=== PATIENT | female | born 1980 | race Hispanic/Latino ===

== ENCOUNTER 2017-01-27 05:28 | Observation (INO) | payer BC ==
[2017-01-27 05:41] VITALS: BMI 34.0
[2017-01-27 05:45] VITALS: TEMP 99.2
--- NOTE | 2017-01-27 06:21 | ED PDOC ---
Arrival/HPI <Bret Robin - Last Filed: 01/27/17 08:15> - General Historian: Patient - History of Present Illness Time/Duration: Other (yesterday evening) Symptom Onset: Gradual Symptom Course: Unchanged Quality: Cramping Activities at Onset: Rest, Light Context: Home <Tone Jovel - Last Filed: 01/29/17 22:10> - General Chief Complaint: Abdominal Pain Time Seen by Provider: 01/27/17 06:13 - History of Present Illness Narrative History of Present Illness (Text): 01/27/17 06:20 Ge Grayson is a 36 year old female who presents to the Emergency department complaining of abdominal cramping since yesterday evening. Patient reports nausea, vomiting, and diarrhea. Patient notes her children at home are sick with similar symptoms. Patient denies any fever, chills, chest pain, shortness of breath, urinary symptoms, back pain, neck pain, headache, dizziness, or any other complaints. (Tone Jovel) Past Medical History - Provider Review Nursing Documentation Reviewed: Yes - Psychiatric Hx Substance Use: No <MagalymaxiTone - Last Filed: 01/29/17 22:10> Family/Social History - Physician Review Nursing Documentation Reviewed: Yes Family/Social History: No Known Family HX Smoking Status: no Hx Alcohol Use: No Hx Substance Use: No <BeckaTone - Last Filed: 01/29/17 22:10> Allergies/Home Meds <DontrellBret garay - Last Filed: 01/27/17 08:15> <BeckaTone - Last Filed: 01/29/17 22:10> Allergies/Adverse Reactions: Allergies Penicillins Allergy (Verified 01/27/17 05:41) RASH Review of Systems - Physician Review All systems were reviewed & negative as marked: Yes - Review of Systems Constitutional: Normal. absent: Fevers Eyes: Normal ENT: Normal Respiratory: Normal. absent: SOB, Cough Cardiovascular: Normal. absent: Chest Pain Gastrointestinal: Abdominal Pain, Diarrhea, Nausea, Vomiting Genitourinary Female: Normal. absent: Dysuria, Frequency, Hematuria, Urine Output Changes Musculoskeletal: Normal. absent: Back Pain, Neck Pain Skin: Normal. absent: Rash Neurological: Normal. absent: Headache, Dizziness Endocrine: Normal Hemo/Lymphatic: Normal Psychiatric: Normal <BeckaTone - Last Filed: 01/29/17 22:10> Physical Exam Vital Signs Reviewed: Yes Temperature: Afebrile Blood Pressure: Normal Pulse: Regular Respiratory Rate: Normal Appearance: Positive for: Well-Appearing, Non-Toxic, Comfortable Pain Distress: None Mental Status: Positive for: Alert and Oriented X 3 - Systems Exam Head: Present: Atraumatic, Normocephalic Pupils: Present: PERRL Extroacular Muscles: Present: EOMI Conjunctiva: Present: Normal Mouth: Present: Moist Mucous Membranes Neck: Present: Normal Range of Motion Respiratory/Chest: Present: Clear to Auscultation, Good Air Exchange. No: Respiratory Distress, Accessory Muscle Use Cardiovascular: Present: Regular Rate and Rhythm, Normal S1, S2. No: Murmurs Abdomen: Present: Normal Bowel Sounds. No: Tenderness, Distention, Peritoneal Signs Back: Present: Normal Inspection Upper Extremity: Present: Normal Inspection. No: Cyanosis, Edema Lower Extremity: Present: Normal Inspection. No: Edema Neurological: Present: GCS=15, CN II-XII Intact, Speech Normal Skin: Present: Warm, Dry, Normal Color. No: Rashes Psychiatric: Present: Alert, Oriented x 3, Normal Insight, Normal Concentration <MagalymaxiTone - Last Filed: 01/29/17 22:10> Vital Signs Temp Pulse Resp BP Pulse Ox 01/27/17 07:47 79 18 122/78 100 01/27/17 06:31 104 H 16 136/77 99 01/27/17 05:44 99.2 F 107 H 18 111/77 98 Medical Decision Making <Bret Robin - Last Filed: 01/27/17 08:15> - EKG Interpretation Interpreted by ED Physician: Yes Type: 12 lead EKG - Transfer of Care Patient signed out to Dr:: carin labs and dsipo <BeckaTone - Last Filed: 01/29/17 22:10> ED Course and Treatment: 01/27/17 06:20 Impression: 36 year old female complaining of abdominal cramping, nausea, vomiting, and diarrhea since yesterday evening. Plan: -- EKG -- Labs, cardiac enzymes, amylase, lipase -- Urinalysis -- IV fluids -- Zofran -- Reassess and disposition Prior Visits: Notes and results from previous visits were reviewed. Progress Notes: (Tone Jovel) - Lab Interpretations Lab Results: 01/27/17 06:25 01/27/17 06:25 Lab Results 01/27/17 06:25: Sodium 140, Potassium 4.2, Chloride 103, Carbon Dioxide 24, Anion Gap 17, BUN 14, Creatinine 0.7, Est GFR ( Amer) > 60, Est GFR (Non- Af Amer) > 60, Random Glucose 133 H, Calcium 9.6, Total Bilirubin 1.3, AST 31, ALT 37, Alkaline Phosphatase 84, Lactate Dehydrogenase 396, Total Creatine Kinase 73, Troponin I < 0.01, Total Protein 8.4 H, Albumin 4.4, Globulin 4.0, Albumin/Globulin Ratio 1.1, Amylase 101, Lipase 59 01/27/17 06:25: Urine Color Yellow, Urine Appearance Clear, Urine pH 6.0, Ur Specific [place] 1.025, Urine Protein Trace H, Urine Glucose (UA) Negative, Urine Ketones Trace H, Urine Blood Moderate H, Urine Nitrate Negative, Urine Bilirubin Negative, Urine Urobilinogen 1.0 H, Ur Leukocyte Esterase Negative, Urine RBC 1 - 3, Urine WBC 0 - 2, Ur Epithelial Cells 1 - 3, Urine Bacteria Small 01/27/17 06:25: PT 10.6, INR 0.98, APTT 25.2 01/27/17 06:25: WBC 13.4 H, RBC 5.24, Hgb 15.3, Hct 44.9, MCV 85.7, MCH 29.2, MCHC 34.1, RDW 13.6, Plt Count 285, MPV 9.4, Gran % 91.7 H, Lymph % (Auto) 2.5 L , [place] % (Auto) 4.5, Eos % (Auto) 1.2 L, Baso % (Auto) 0.1, Gran # 12.28 H, Lymph # 0.3 L, [place] # 0.6, Eos # 0.2, Baso # 0.02 - Medication Orders Current Medication Orders: Discontinued Medications Sodium Chloride (Sodium Chloride 0.9%) 1,000 mls @ 100 mls/hr IV .Q10H STA Stop: 01/27/17 16:31 Last Admin: 01/27/17 06:44 Dose: 100 mls/hr Ondansetron HCl (Zofran Inj) 4 mg IVP STAT STA Stop: 01/27/17 06:33 Last Admin: 01/27/17 06:44 Dose: 4 mg ED OBSERVATION Discharge: Yes Date of observation admission: 01/27/17 Time of observation admission: 07:00 <Bret Robin - Last Filed: 01/27/17 08:15> <Tone Jovel - Last Filed: 01/29/17 22:10> - Observation admission statement Patient is being placed in observation because:: abdominal pain (Bret Robin) - Goals of Observation Goals of observation are:: pain control (Bret Robin) - Progress Note Progress Note: 01/27/17 07:00 Case signed out to me from overnight by Dr. Jovel, pending labs, reevaluation and disposition. 01/27/17 07:15 On reevaluation, the patient feels much better. She denies any complaints at this time. On reexamination, the patient abdomen is soft and non-tender. Patient confirms her and children have similar complaints at home. 01/27/17 08:15 EKG shows sinus tach 106bpm, no st-elevations, normal intervals. Interpreted by me pt's HR 70's on reevaluation leukocytosis noted, pt has no abdominal pain at this time and abd. is soft/nt on reexamination On reevaluation, patient reports that she feels much better and would like to be discharged home. Patient's repeat abdominal exam is soft, nontender, non distended with positive bowel sounds in all 4 quadrants and no peritoneal signs. Patient is tolerating PO without any difficulty. Pt states she understands to return to the ER right away for new or worsening symptoms or for inability to f/u with PMD or specialist as instructed. Patient states that she fully agrees with and understands discharge instructions. States that she agrees with the plan and disposition. Verbalized and repeated discharge instructions and plan. I have given the patient opportunity to ask any additional questions. (Bret Robin) <Bret Robin - Last Filed: 01/27/17 08:15> - Scribe Statement The provider has reviewed the documentation as recorded by the Scribe <Tone Jovel - Last Filed: 01/29/17 22:10> - Scribe Statement Erwin Becker Provider Scribe Attestation: All medical record entries made by the Scribe were at my direction and personally dictated by me. I have reviewed the chart and agree that the record accurately reflects my personal performance of the history, physical exam, medical decision making, and the department course for this patient. I have also personally directed, reviewed, and agree with the discharge instructions and disposition. (Bret Robin) Ritu Patino All medical record entries made by the Scribe were at my direction and personally dictated by me. I have reviewed the chart and agree that the record accurately reflects my personal performance of the history, physical exam, medical decision making, and the department course for this patient. I have also personally directed, reviewed, and agree with the discharge instructions and disposition. (Tone Jovel) Disposition/Present on Arrival - Present on Arrival Any Indicators Present on Arrival: No - Disposition Have Diagnosis and Disposition been Completed?: Yes Disposition Time: 06:00 Patient Plan: Discharge <Bret Robin - Last Filed: 01/27/17 08:15> - Present on Arrival Any Indicators Present on Arrival: No History of DVT/PE: No History of Uncontrolled Diabetes: No Urinary Catheter: No History of Decub. Ulcer: No History Surgical Site Infection Following: None - Disposition Have Diagnosis and Disposition been Completed?: Yes Disposition Time: 07:00 <Tone Jovel - Last Filed: 01/29/17 22:10> - Disposition Diagnosis: Nausea vomiting and diarrhea Disposition: HOME/ ROUTINE Condition: GOOD
[2017-01-27] MEDS ORDERED: Sodium Chloride 0.9% 1,000 ML IV STA (06:32)
[2017-01-27 07:09] LABS: INR 0.98 (0.93-1.08); PARTIAL THROMBOPLASTIN TIME 25.2 Seconds (23.7-30.8)
[2017-01-27 07:12] LABS: BASO # 0.02 K/mm3 (0.0-2.0); BASO % 0.1 % (0.0-3.0); EOS # 0.2 (0.0-0.7); EOS % 1.2 % (1.5-5.0); GRAN # 12.28 (1.4-6.5); GRAN % 91.7 % (50.0-68.0); HEMATOCRIT 44.9 % (36.0-48.0); LYMPH # 0.3 (1.2-3.4); LYMPH % 2.5 % (22.0-35.0); MEAN CELL VOLUME 85.7 fL (80.0-105.0); MEAN CORPUSCULAR HEMOGLOBIN 29.2 pg (25.0-35.0); MEAN CORPUSCULAR HGB CONC 34.1 g/dl (31.0-37.0); MEAN PLATELET VOLUME 9.4 fl (7.0-11.0); MONO # 0.6 (0.1-0.6); MONO % 4.5 % (1.0-6.0); PLATELET COUNT 285 10^3/uL (120.0-450.0); RED CELL DISTRIBUTION WIDTH 13.6 % (11.5-14.5); WHITE BLOOD COUNT 13.4 10^3/ul (4.5-11.0)
[2017-01-27 07:18] LABS: ADD MANUAL DIFF? NO
[2017-01-27 07:20] LABS: ALB/GLOB RATIO 1.1 (1.1-1.8); ALKALINE PHOSPHATASE 84 U/L (38-133); ALT/SGPT 37 U/L (7-56); AMYLASE 101 U/L (35-125); AST/SGOT 31 U/L (15-39); BILIRUBIN,TOTAL 1.3 mg/dL (0.2-1.3); BLOOD UREA NITROGEN 14 mg/dL (7-21); CALCIUM 9.6 mg/dL (8.4-10.5); CARBON DIOXIDE 24 mmol/L (21-33); CHLORIDE 103 mmol/L (98-107); GFR AFRICAN-AMERICAN > 60; GLUCOSE,RANDOM 133 mg/dL (70-110); LIPASE 59 U/L (23-300); POTASSIUM 4.2 mmol/L (3.6-5.0); SODIUM 140 mmol/L (132-148); TOTAL PROTEIN 8.4 g/dL (5.8-8.3)
[2017-01-27 07:24] LABS: TROPONIN I < 0.01 ng/mL; URINE BILIRUBIN NEGATIVE (NEGATIVE); URINE BLOOD MODERATE (NEGATIVE); URINE GLUCOSE (UA) NEGATIVE (NEGATIVE); URINE KETONE TRACE mg/dL (NEGATIVE); URINE LEUKOCYTE ESTERASE NEGATIVE Leu/uL (NEGATIVE); URINE PROTEIN TRACE mg/dL (<30 mg/dL)
[2017-01-27 07:25] LABS: URINE APPEARANCE CLEAR (CLEAR); URINE COLOR YELLOW (YELLOW)
[2017-01-27 07:34] LABS: URINE BACTERIA SMALL (NEG); URINE WBC 0 - 2 /hpf (0-6)
[2017-01-27 07:47] VITALS: BP 122/78; PULSE 79; RESP 18; O2SAT 100
--- NOTE | 2017-01-28 02:23 | CARD ---
APPROVED REPORT EKG Measurement Heart [id number] ID [id number] <Conclusion> Sinus tachycardia Otherwise normal ECG
== END 2017-01-27 08:18 | disposition home or self-care (01) ==
LOC: ED 05:28 → EROBSV 06:49
PROVIDERS: ADMIT Emergency Medicine; ATTEND Emergency Medicine
DX: R19.7 Diarrhea, unspecified (principal); R11.2 Nausea with vomiting, unspecified
CPT/HCPCS: 80053; 81001; 82150; 82550; 83615; 83690; 84484; 85025; 85610; 85730; 93005; 96374; 99284; G0378; J2405; J7040